=== PATIENT | male | born 1940 | race Caucasian/White ===

== ENCOUNTER 2024-05-03 06:29 | Observation (INO) ==
--- NOTE | 2024-04-27 12:57 | Anesthesiology Consultation ---
Date of Service April 27, 2024 Assessment & Plan Chart Review Chart Review: Acceptable Risk for Surgery and Patient NOT seen in Pre Admission Testing History Surgery Operation Date: 05/03/24 14:40 Proposed Procedures p Cystolithalopaxy (Bladder Stone Fragmentation and Removal) - Raúl Lake DO s Possible TURP (Transurethral Resection of the Prostate) - Raúl Lake DO Height/Weight Height: 5 ft 9 in Weight: 88.904 kg Allergies Allergy/AdvReac Type Severity Reaction Status Date / Time No Known Allergies Allergy Verified 04/26/24 13:27 Medications Home Medications Medication Instructions Recorded Confirmed Last Taken apixaban 5 mg tablet (Eliquis) 5 mg PO BID 03/18/24 04/26/24 Unknown finasteride 5 mg tablet 5 mg PO QAM 03/18/24 04/26/24 Unknown glimepiride 2 mg tablet 2 mg PO QAM 03/18/24 04/26/24 Unknown metformin 500 mg tablet 500 mg PO BID 03/18/24 04/26/24 Unknown pantoprazole 20 mg tablet,delayed 20 mg PO QAM 03/18/24 04/26/24 Unknown release simvastatin 40 mg tablet 40 mg PO QAM 03/18/24 04/26/24 Unknown tamsulosin 0.4 mg capsule 0.4 mg PO QAM 03/18/24 04/26/24 Unknown duloxetine 20 mg capsule,delayed 20 mg PO BID 04/20/24 04/26/24 Unknown release Past Medical History Medical History Hx of blood clots dx right arm/shoulder, 2/2 to "filling up with fluid from bladder stones and kidney issues, and caused him to fall 4x in 2 days,"; on eliquis since then, only to be taking for 3 month course of treatment. Hx of gastroesophageal reflux (GERD) Renal cyst hx Diabetes BPH w urinary obs/LUTS Bladder stones Hyperlipidemia Past Family History Family History Mother Diabetes Heart disease Brother Heart disease Past Surgical History Surgical History History of insertion of nephrostomy tube x2, 01/2024, ph [facility], "still in place" Hx of vasectomy H/O neck surgery 1997, C5-C6 cervical fusion; ROM is limited side to side "mildly" Social History Smoking Status: Former smoker Do You Dip or Chew Tobacco: No (1997 quit; advised) Smoking End Date: 30-40 years ago Hx Alcohol Use: No Hx Substance Use: No substance use type: does not use
[2024-05-03] MEDS ORDERED: ePHEDrine sulfate 50 MG/ML AMP IV PRN (07:02)
[2024-05-03] MEDS ORDERED: ATROPINE SULFATE 0.1 MG/ML 10ML SYR IV PRN (07:02)
[2024-05-03] MEDS ORDERED: ONDANSETRON INJ 2 MG/ML 2 ML VIAL IV PRN ×2 (07:02→07:03)
[2024-05-03] MEDS ORDERED: fentaNYL citrate PF 100 MCG/2 ML VIAL IV PRN (07:02)
[2024-05-03] MEDS ORDERED: PHENAZOPYRIDINE HCL 200 MG TAB PO PRN (07:03)
[2024-05-03] MEDS ORDERED: oxyBUTYnin chloride 5 MG TAB PO PRN (07:03)
[2024-05-03] MEDS ORDERED: MoRPHine SULFATE 2 MG/ML CARP IV PRN (07:03)
[2024-05-03] MEDS ORDERED: oxyCODONE/ACETAMINOPHEN 5mg/325mg TAB PO PRN (07:03)
--- NOTE | 2024-05-03 07:03 | History & Physical Bridge Note ---
Date of Service May 03, 2024 History & Physical Bridge Note I have examined the patient, reviewed the History & Physical and in the interval since the performance of the History & Physical I have noted the following changes of clinical significance: no changes noted
[2024-05-03] MEDS: LR @ 15ML/HR IV SCH (07:16)
[2024-05-03] MEDS ORDERED: LIDOCAINE 2% 2 ML VIAL/AMP(20MG/ML) INFIL ONE (07:23)
[2024-05-03] MEDS ORDERED: PROPOFOL IV EMULSION 10 MG/ML 20 ML VIAL IV ONE (07:23)
[2024-05-03] MEDS ORDERED: ONDANSETRON INJ 2 MG/ML 2 ML VIAL ONE (07:23)
[2024-05-03 07:44] LABS: Albumin Level 3.6 gm/dl (3.4-5.0); BUN Creatinine Ratio 21.3 (10-20); Bilirubin,Total 0.5 mg/dl (0.2-1.0); Calcium 9.1 mg/dl (8.6-10.3); Creatinine Clr Calc Pharmacy 44.2 ml/min; Globulin 3.6 gm/dl (2.5-4.0); Potassium 4.3 mmol/L (3.5-5.1); Total Protein 7.2 gm/dl (6.0-8.3)
[2024-05-03] MEDS ORDERED: ACETAMINOPHEN 1000 MG/100 ML IV IV ONE (07:46)
[2024-05-03] MEDS ORDERED: fentaNYL citrate PF 100 MCG/2 ML VIAL ONE ×2 (07:47→08:10)
[2024-05-03 07:55] LABS: Basophils # (auto) 0.05 K/uL (0.00-0.20); Basophils % (auto) 0.5 %; Eosinophils # (auto) 0.18 K/uL (0.00-0.50); Eosinophils % (auto) 1.8 %; Hematocrit (blood only) 36.1 % (42.0-52.0); Hemoglobin 11.8 g/dl (14.0-18.0); Immature Granulocytes # (auto) 0.03 K/uL (0.01-0.20); Immature Granulocytes % (auto) 0.3 %; Lymphocytes # (auto) 1.45 K/uL (1.20-3.40); Lymphocytes % (auto) 14.6 %; Mean Corpuscular Hemoglobin 29.6 pg (25.0-34.0); Mean Corpuscular Hgb Conc 32.7 g/dL (32.0-36.0); Mean Corpuscular Volume 90.7 fL (80.0-100.0); Mean Platelet Volume 8.5 fL (9.4-12.4); Monocytes # (auto) 0.85 K/uL (0.11-0.59); Monocytes % (auto) 8.6 %; Neutrophils # (auto) 7.36 K/uL (1.40-6.50); Neutrophils % (auto) 74.2 %; Platelet Count 294 K/uL (130-400); Red Blood Count 3.98 M/uL (4.70-6.10); White Blood Count 9.92 K/ul (4.8-10.8)
[2024-05-03] MEDS: ceFAZolin 2000MG 2,000 MG/15 ML SYR IV SCH ×2 (07:57)
[2024-05-03] MEDS ORDERED: PHENYLEPHRINE 100MCG/ML 5ML SYR ONE (08:16)
[2024-05-03] MEDS ORDERED: KETOROLAC 30 MG/ML VIAL ONE (08:18)
[2024-05-03] MEDS ORDERED: HYDROmorphone INJ 2 MG/ML SYR/VIAL ONE (08:28)
[2024-05-03] MEDS: DIATRIZOATE MEGLUMINE 30% 100ML VIAL INSTIL ONE (09:23)
--- NOTE | 2024-05-03 09:40 | Operative Report ---
PG Post Operative Report Pre & Post Diagnosis Operation Date: 05/03/24 07:40 Pre-Op Diagnosis: Bladder Stones, BPH Post-Op Diagnosis: Bladder Stones, BPH I identified the patient and participated in the time-out.: Yes Procedure Operation Date: 05/03/24 07:40 Actual Procedures Cystolitholapaxy (Bladder Stone Fragmentation and Removal), clot/debris evacuation. Bilateral retrograde pyelogram, bilateral ureteral stent placement Transurethral Resection of the Prostate. Fulguration of bladder neck and bladder base lesions. - Raúl Lake DO Surgeon Raúl Lake, II, DO Surgical Garment Fitter None Estimated Blood Loss 10 Findings Consistent with Post-Op Diagnosis Numerous large stones in bladder. Three stones larger than 2.5 cm. Largest approx 3.8 cm in size. Large Prostate with obstruction. Very large median lobe with high bladder neck. Severe edematous changes and bleeding ulceration and varicosity of the base of the bladder and bladder neck. Bilateral ureteral obstruction with nephrostomy tubes in position. Severe tortuosity of the bilateral ureter and significant narrowing of the distal ureter. Bilateral ureteral stents placed. Specimens Prostate adenoma. Bladder Stone Drains 22Fr [address] Catheter 4.8 Fr Multilength stents. Anesthesia Type General Complications none Disposition Disposition: Recovery Room Indications Patient with obstruction due to prostate enlargement. Bilateral nephrostomy tubes placed by outlying facility due to inability to access ureters. Severe bladder stones throughout the bladder. Extremely large prostate with severe varicosities. Risks and benefits discussed at length. Description of Procedure Patient was consented and brought back to the operating room. Patient was placed under anesthesia in the supine position and moved to the dorsal lithotomy position. Patient was prepped and draped in the regular sterile fashion. A time out was completed. A 30degree Cystoscope was placed into the bladder and the entire bladder was examined. Debris had to be evacuated from inside the bladder. Within the prostatic urethra there was severe enlargement with large varicosities and multiple areas of bleeding especially around the bladder neck. There were stones within the prostatic urethra. The bladder was nearly filled completely with stones with 3 very large stones 1 approximately 3.8 cm in size. Numerous small stones throughout the base of the bladder. Innumerable stones were discovered. The majority of the bladder internal lumen was filled with stone material. The median lobe was found to be severely enlarged and edematous there was severe inflammatory changes with edematous changes along the base of the bladder making the ureters difficult to identify. There were numerous areas of bleeding noted from the bladder neck as well as ulcers on the base. The laser bridge and laser fiber were selected and 1000 m laser fiber was utilized. The stones were destroyed to small fragments and pieces. Extensive evacuation was completed in order to clear the large amount of stone material. After bulk of the stone material was able to be broken up and extracted additional large stones were needed to be treated. The laser was once again utilized. The stones were fragmented and pieces were able to be evacuated. The UO's were identified as well as the bladder neck, trigone, dome, and the other important landmarks. The prostatic urethra and large lobes/adenoma was assessed and the veru and bladder neck identified and area/size was assessed. Multiple areas of bleeding varicosities as well as severe edematous changes and ulceration were noted around the bladder neck and base. The resection scope was placed and the fine bipolar loop was selected. Starting at the 5 and 7 o'clock positions, a channel was created from bladder neck to the veru. The Specimen was removed and sent for analysis. The resection bed and any bleeding areas were fulgurated/cauterized and the entire area inspected. All bleeding was controlled. Resection of the very large median lobe drastically improved flow and allowed a easier evacuation of some of the remaining stone pieces. Areas of bleeding and ulceration along the bladder neck and base of the bladder were then fulgurated. Approximately 7 additional lesions were fulgurated in this manner that appear to be ulcerated and inflamed. The UO's were monitored throughout the process and did not appear to be involved. A 5 [place] open-ended catheter was then utilized to access the ureter bilaterally. Severe J hooking was noted significant tortuosity contrast was used to complete a retrograde pyelogram but were extremely difficult due to the angulation of the ureter. A Stan catheter was then selected. This allowed easier access into the UO and a retrograde pyelogram was able to be completed. Significant hydroureter was noted along the mid and proximal ureter there was severe tortuosity. The distal ureter bilaterally was severely narrowed possibly due to external compression possibly due to the entrance point into the bladder being displaced from the large prostate. Wires were placed bilaterally. 4.8 [place] double-J ureteral stents were then placed under direct visualization and confirmed with fluoroscopy. Both stents appear to be in good position. The nephrostomy tubes had also been assessed with contrast in the renal pelvis. Both nephrostomy tubes were in good position and remained in place without major issue. Both appear to be draining well without major problems. The bladder was inspected a final time. The bladder was emptied and irrigated. All specimen and debris was removed. The scope was removed with the bladder partially full. A catheter was placed and balloon elevated. This was easily irrigated. The patient was cleaned, aroused from anesthesia, and transferred to the pacu in stable condition having tolerated the procedure well with no complications. I was present and participated in all aspects of the procedure. The patient will be monitored in the PACU until transferred. Plan to observe overnight. Will plan to maintain catheter for approximately 2 weeks. Can try capping nephrostomy tubes tomorrow if patient tolerates. Will continue on continuous bladder irrigation. Will likely need to maintain ureteral stents until further evaluation. May need resection of remainder of prostate will need to discuss after adequate time for healing. I attest to the content of the Intraoperative Record and any orders documented therein. Any exceptions are noted below.
--- NOTE | 2024-05-03 09:58 | Fluoroscopy Report ---
FL retrograde includes kub CLINICAL HISTORY: B/L RETROGRADE AND STENT PLACEMENT COMPARISON STUDY: None FLUOROSCOPY TIME: 178 seconds FLUOROSCOPY IMAGES: 8 EXPOSURE DOSE: 68 mGy FINDINGS: Fluoroscopy was provided for urologic procedure. IMPRESSION: Intraoperative fluoroscopy. ACT 112: Negative or not required by law. Electronically signed by: Hero Ferro M.D. 05/03/2024 9:57 AM
--- NOTE | 2024-05-03 15:09 | Anesthesiology Progress Note ---
Date of Service May 03, 2024 Anesthesia Post Procedure Vital Signs Vital Signs: Temp Pulse Pulse Pulse Resp BP BP 05/03/24 14:12 36.5 C 75 16 113/59 L 05/03/24 13:58 36.7 C 75 16 111/54 L 05/03/24 13:40 36.3 C L 73 16 115/60 05/03/24 13:30 68 16 120/64 05/03/24 12:30 72 14 120/56 L 05/03/24 12:00 80 12 142/67 H 05/03/24 11:25 36.4 C L 74 14 127/68 05/03/24 11:10 72 16 123/63 05/03/24 10:55 75 14 130/68 05/03/24 10:40 74 12 130/66 05/03/24 10:25 75 16 124/61 05/03/24 10:15 36.4 C L 78 12 128/65 05/03/24 10:05 75 12 128/62 05/03/24 09:55 78 12 126/76 05/03/24 09:45 36 C L 83 10 L 132/69 05/03/24 06:46 36.8 C 99 H 20 141/67 H Pulse Ox O2 Del Method O2 Flow Rate 05/03/24 14:12 97 Room Air 05/03/24 13:58 96 Room Air 05/03/24 13:40 99 Room Air 05/03/24 13:30 96 Room Air 05/03/24 12:30 97 Room Air 05/03/24 12:00 100 Nasal Cannula 2 05/03/24 11:25 99 Nasal Cannula 2 05/03/24 11:10 99 Nasal Cannula 2 05/03/24 10:55 95 Room Air 05/03/24 10:40 94 Room Air 05/03/24 10:25 93 Room Air 05/03/24 10:15 96 Room Air 05/03/24 10:05 99 Oxymask 2 05/03/24 09:55 98 Oxymask 4 05/03/24 09:45 99 Oxymask 6 05/03/24 06:46 97 Room Air Transfer of Care Handoff Completed per policy Notes Mental Status: alert / awake / arousable and participated in evaluation Patient Amnestic to Procedure: Yes Nausea / Vomiting: adequately controlled Pain: adequately controlled Airway Patency, RR, SpO2: stable & adequate BP & HR: stable & adequate Hydration State: stable & adequate Anesthetic Complications: no major complications apparent and Pt Satisfied with anesthetic care
[2024-05-03] MEDS ORDERED: GLUCAGON FOR INJ 1 MG VIAL SQ PRN (16:15)
[2024-05-03] MEDS ORDERED: GLUCOSE 10 TAB/TUBE PO PRN (16:15)
[2024-05-03] MEDS ORDERED: GLUCOSE 40% GEL 15 GM TUBE PO PRN (16:15)
[2024-05-03] MEDS ORDERED: CARBOHYDRATES FOR HYPOGLYCEMIA PO PRN (16:15)
[2024-05-03] MEDS ORDERED: DEXTROSE 50% 50 ML SYRINGE IV PRN (16:15)
--- NOTE | 2024-05-03 16:23 | Consultation ---
Date of Consultation May 03, 2024 Assessment & Plan (1) Bladder stones: Status post cystoscopy today, May 03, with cystolitholapaxy, bilateral ureteral stent placement, TURP, and fulguration of bladder neck and bladder base lesions. Management per urology service. (2) Obstructive nephropathy: History of bilateral ureteral obstruction with bilateral nephrostomy tube placement. Urology management (3) Diabetes: Type II. ADA diet. Sliding scale coverage for now. His usual metformin and glimepiride are on hold (4) Chronic kidney disease, stage 3: Monitor intake and output. Serial labs Plan Thank you for the medical consultation. The hospitalist service will follow and manage the medical problems until discharge by primary service History of Present Illness Reason for Consultation: Medical management Attending Physician: Raúl Lake II DO History of Present Illness 83-year-old white male who underwent cystoscopy today, May 03, with cystolitholapaxy , bilateral ureteral stent placement, TURP, and fulguration of bladder neck lesions and bladder base lesions. He was seen postoperatively and was sleeping but easily awakened and conversant. Vital signs are stable. He is afebrile. He denies hematuria or fever Allergies Allergy/AdvReac Type Severity Reaction Status Date / Time No Known Allergies Allergy Verified 05/03/24 06:53 Home Medications Medication Instructions Recorded Confirmed Type apixaban 5 mg tablet (Eliquis) 5 mg PO BID 03/18/24 05/03/24 History finasteride 5 mg tablet 5 mg PO QAM 03/18/24 05/03/24 History glimepiride 2 mg tablet 2 mg PO QAM 03/18/24 05/03/24 History metformin 500 mg tablet 500 mg PO BID 03/18/24 05/03/24 History pantoprazole 20 mg tablet,delayed 20 mg PO QAM 03/18/24 05/03/24 History release simvastatin 40 mg tablet 40 mg PO QAM 03/18/24 05/03/24 History tamsulosin 0.4 mg capsule 0.4 mg PO QAM 03/18/24 05/03/24 History duloxetine 20 mg capsule,delayed 20 mg PO BID 04/20/24 05/03/24 History release Patient History Medical History Hx of blood clots dx right arm/shoulder, 2/2 to "filling up with fluid from bladder stones and kidney issues, and caused him to fall 4x in 2 days,"; on eliquis since then, only to be taking for 3 month course of treatment. Hx of gastroesophageal reflux (GERD) Renal cyst hx Diabetes BPH w urinary obs/LUTS Bladder stones Hyperlipidemia Surgical History History of insertion of nephrostomy tube x2, 01/2024, ph john, "still in place" Hx of vasectomy H/O neck surgery 1997, C5-C6 cervical fusion; ROM is limited side to side "mildly" Family History Mother Diabetes Heart disease Brother Heart disease Social History Smoking Status: Former smoker Tobacco Type: Smokeless Tobacco (Dip or Chew) Smoking End Date: 30-40 years ago; Second Hand Exposure: No; Do You Dip or Chew Tobacco: No (1997 quit; advised); Tobacco Cessation Education Requested by Patient: No Hx Alcohol Use: No Hx Substance Use: No Preferred Language: Polish Communication Ability: Effective Proposal Specialist Required: No Beliefs That Will Affect Care: None marital status: Single Current Living Situation: Alone Current Living Situation Comment: daughters come every day to check on him every day current occupational status: retired Other Information That Helps Us Care for You: No Feels Safe at Home: Yes Safety Concerns: Feels Safe At This Time Assistive Devices: None Review of Systems 2 Review of Systems: Constitutionalno fever or chills ENTno blurred vision, no double vision, no epistaxis, no sore throat Respiratoryno cough, no wheezing, no shortness of breath Cardiacno palpitations, no chest pain, no syncope Eb nausea, vomiting, diarrhea, melena, hematochezia GUno urinary retention, no urinary incontinence, no dysuria, no hematuria Musculoskeletalno joint pain, no muscle tenderness Skinno bruising, no rashes, no pruritus Neurono isolated weakness, no paresthesia, no weakness Psychno depression, no anxiety Physical Exam 2 Physical Exam: General-alert and oriented x3, no fever, no chills HEENT-head atraumatic and normocephalic, pupils equal and reactive to light, extraocular muscles intact Neck-no lymphadenopathy or thyromegaly, trachea midline Chest-clear to auscultation. No rales, wheezing or rhonchi Cardiac-regular rate and rhythm, normal S1 and S2 Abdomen-normal bowel sounds, no hepatosplenomegaly Extremities-no cyanosis, clubbing, or edema Neuro-cranial nerves II through XII intact, motor and sensory function within normal limits, strength symmetrical, no focal deficits Psych-normal affect, normal mood Results & Data Vital Signs (Past 12 Hours) Vital Signs Temp Pulse Pulse Pulse Resp BP BP 05/03/24 14:12 36.5 C 75 16 113/59 L 05/03/24 13:58 36.7 C 75 16 111/54 L 05/03/24 13:40 36.3 C L 73 16 115/60 05/03/24 13:30 68 16 120/64 05/03/24 12:30 72 14 120/56 L 05/03/24 12:00 80 12 142/67 H 05/03/24 11:25 36.4 C L 74 14 127/68 05/03/24 11:10 72 16 123/63 05/03/24 10:55 75 14 130/68 05/03/24 10:40 74 12 130/66 05/03/24 10:25 75 16 124/61 05/03/24 10:15 36.4 C L 78 12 128/65 05/03/24 10:05 75 12 128/62 05/03/24 09:55 78 12 126/76 05/03/24 09:45 36 C L 83 10 L 132/69 05/03/24 06:46 36.8 C 99 H 20 141/67 H Pulse Ox O2 Del Method O2 Flow Rate 05/03/24 14:12 97 Room Air 05/03/24 13:58 96 Room Air 05/03/24 13:40 99 Room Air 05/03/24 13:30 96 Room Air 05/03/24 12:30 97 Room Air 05/03/24 12:00 100 Nasal Cannula 2 05/03/24 11:25 99 Nasal Cannula 2 05/03/24 11:10 99 Nasal Cannula 2 05/03/24 10:55 95 Room Air 05/03/24 10:40 94 Room Air 05/03/24 10:25 93 Room Air 05/03/24 10:15 96 Room Air 05/03/24 10:05 99 Oxymask 2 05/03/24 09:55 98 Oxymask 4 05/03/24 09:45 99 Oxymask 6 05/03/24 06:46 97 Room Air Laboratory Results 05/03/24 07:11 05/03/24 07:11 PG Care Time/CCT Total # of Minutes Spent Total Time Spent with Patient: Total time spent is greater than 50% in coordination of care (as documented) at patient's floor/unit and/or counseling patient: Coding Level of Care Code 13410 INT INP/OBS CARE 2MIN Diagnoses Bladder stones N21.0 Obstructive nephropathy N13.8 Diabetes E11.9 Chronic kidney disease, stage 3 N18.30
[2024-05-03 17:29] LABS: Hemoglobin 11.2 g/dl (14.0-18.0); Mean Corpuscular Hemoglobin 30.1 pg (25.0-34.0); Mean Corpuscular Hgb Conc 32.9 g/dL (32.0-36.0); Mean Corpuscular Volume 91.4 fL (80.0-100.0); Mean Platelet Volume 8.6 fL (9.4-12.4); Platelet Count 266 K/uL (130-400); RDW Standard Deviation 42.7 fL (36.4-46.3); Red Blood Count 3.72 M/uL (4.70-6.10); White Blood Count 8.36 K/ul (4.8-10.8)
[2024-05-03 17:46] LABS: Albumin Globulin Ratio 0.9 (0.9-2); Albumin Level 3.1 gm/dl (3.4-5.0); BUN Creatinine Ratio 19.5 (10-20); Bilirubin,Total 0.3 mg/dl (0.2-1.0); Calcium 8.4 mg/dl (8.6-10.3); Creatinine Clr Calc Pharmacy 37.8 ml/min; Globulin 3.3 gm/dl (2.5-4.0); Potassium 4.7 mmol/L (3.5-5.1); Total Protein 6.4 gm/dl (6.0-8.3)
[2024-05-03] MEDS: DOCUSATE SODIUM 100 MG CAP PO SCH (18:01)
[2024-05-03] MEDS: TAMSULOSIN HCL 0.4 MG CAP PO SCH (18:02)
[2024-05-03] MEDS: PANTOprazole 40 MG TAB PO SCH (18:02)
[2024-05-03] MEDS: DULoxetine HCL 20 MG CAP PO SCH (18:02)
[2024-05-03] MEDS: INSULIN ASPART PER UNIT CHARGE SC SCH (18:11)
[2024-05-03] MEDS: FAMOTIDINE/PF 20 MG/2 ML VIAL IV ONE (18:36)
[2024-05-04] MEDS ORDERED: HYDROmorphone INJ 0.5 MG/0.5 ML SYR IV PRN (00:05)
[2024-05-04] MEDS: LOPERAMIDE HCL 2 MG CAP PO PRN (01:02)
[2024-05-04 10:00] LABS: Basophils # (auto) 0.03 K/uL (0.00-0.20); Basophils % (auto) 0.4 %; Eosinophils # (auto) 0.14 K/uL (0.00-0.50); Eosinophils % (auto) 1.6 %; Hematocrit (blood only) 34.8 % (42.0-52.0); Hemoglobin 11.2 g/dl (14.0-18.0); Immature Granulocytes # (auto) 0.02 K/uL (0.01-0.20); Immature Granulocytes % (auto) 0.2 %; Lymphocytes # (auto) 1.43 K/uL (1.20-3.40); Lymphocytes % (auto) 16.7 %; Mean Corpuscular Hemoglobin 29.2 pg (25.0-34.0); Mean Corpuscular Hgb Conc 32.2 g/dL (32.0-36.0); Mean Corpuscular Volume 90.6 fL (80.0-100.0); Mean Platelet Volume 8.4 fL (9.4-12.4); Monocytes # (auto) 0.76 K/uL (0.11-0.59); Monocytes % (auto) 8.9 %; Neutrophils # (auto) 6.19 K/uL (1.40-6.50); Neutrophils % (auto) 72.2 %; Platelet Count 251 K/uL (130-400); RDW Coefficient of Variation 12.9 % (11.5-14.5); Red Blood Count 3.84 M/uL (4.70-6.10); White Blood Count 8.57 K/ul (4.8-10.8)
[2024-05-04 10:13] LABS: BUN Creatinine Ratio 25.4 (10-20); Calcium 8.5 mg/dl (8.6-10.3); Creatinine Clr Calc Pharmacy 47.6 ml/min; Potassium 3.7 mmol/L (3.5-5.1)
--- NOTE | 2024-05-04 10:58 | Urology Progress Note ---
Date of Service May 04, 2024 Assessment & Plan (1) Bladder stones: (2) History of insertion of nephrostomy tube: (3) BPH w urinary obs/LUTS: Plan: - Pt POD#1 s/p Cystolitholapaxy (Bladder Stone Fragmentation and Removal), clot/debris evacuation. Bilateral retrograde pyelogram, bilateral ureteral stent placement. Transurethral Resection of the Prostate. Fulguration of bladder neck and bladder base lesions. - Doing well, progressing as expected - Afebrile, stable vitals - Lab work reviewed - creatinine 1.26, WBC 8.57, Hgb 11.2 - Bilateral nephrostomy tubes intact and draining clear urine, capped at bedside per Dr. Lake - 3 way Martinez catheter intact, patent and draining clear urine with CBI on slow - CBI clamped during exam- will reassess later this AM - Maintain Martinez catheter for 2 weeks - Anticipate home with Martinez catheter later today or tomorrow presuming urine appropriate and he continues to progress as expected - Expected clinical course reviewed, all questions answered - Will arrange outpatient follow-up with our service for voiding trial and ongoing management Admission and Anticipated Discharge Date Admission Date: May 03, 2024 Subjective Patient seen and examined at bedside. No acute issues overnight. He denies pain at present. Bilateral nephrostomy tubes intact with clear urine. Martinez patent and draining with clear urine with CBI on slow. CBI clamped at bedside. Nephrostomy tubes clamped per Dr. Lake. Denies fever or chills. Review of Systems Constitutional: as per Subjective / HPI Genitourinary: + as per Subjective / HPI Physical Exam Constitutional: well developed and well nourished; no acute distress Respiratory: normal respiratory effort; no respiratory distress and no labored breathing Gastrointestinal (Abdomen): Inspection/Auscultation: abdomen normal to inspection Musculoskeletal: Head/Neck/Chest: normocephalic Neurologic: moves all extremities and awake Psychiatric: Orientation: alert and oriented x 3 Genitourinary: Bilateral nephrostomy tubes with clear urine, capped during exam. Martinez with clear urine, CBI on slow. CBI clamped during exam. Results & Data Vital Signs (Past 12 Hours) Vital Signs Temp Pulse Pulse Resp BP Pulse Ox Pulse Ox 05/04/24 10:48 36.4 C L 85 18 122/63 97 05/04/24 07:27 36.4 C L 85 16 116/50 L 97 05/04/24 07:04 97 05/04/24 07:04 88 05/04/24 03:50 36.4 C L 87 20 132/58 L 95 05/04/24 00:28 36.6 C 91 H 20 130/64 98 05/03/24 23:05 O2 Del Method O2 Del Method 05/04/24 10:48 Room Air 05/04/24 07:27 Room Air 05/04/24 07:04 Room Air 05/04/24 07:04 05/04/24 03:50 Room Air 05/04/24 00:28 Room Air 05/03/24 23:05 Room Air PG Care Time/CCT Total # of Minutes Spent Total Time Spent with Patient: Total time spent is greater than 50% in coordination of care (as documented) at patient's floor/unit and/or counseling patient: Coding Level of Care Code None Diagnoses Bladder stones N21.0 History of insertion of nephrostomy tube Z98.890 BPH w urinary obs/LUTS N40.1; N13.8
--- NOTE | 2024-05-04 12:32 | Hospitalist Progress Note ---
Date of Service May 04, 2024 Assessment & Plan (1) Bladder stones: Plan: Status post cystoscopy on May 03, with cystolitholapaxy, bilateral ureteral stent placement, TURP, and fulguration of bladder neck and bladder base lesions. Postoperative day #1. Management per urology service. (2) Obstructive nephropathy: Plan: History of bilateral ureteral obstruction with bilateral nephrostomy tube placement. Urology management (3) Diabetes: Plan: Type II. ADA diet. Sliding scale coverage for now. His usual metformin and glimepiride are on hold. Glucose 156 this morning, May 04 (4) Chronic kidney disease, stage 3: Plan: Stable. Monitor intake and output. Serial labs Plan Medically stable for discharge when appropriate as determined by primary service Admission and Anticipated Discharge Date Admission Date: May 03, 2024 Subjective Alert and oriented. No distress. Urology entry noted. Will be discharged to home later today or tomorrow. He is medically stable Review of Systems 2 Review of Systems: Constitutionalno fever or chills ENTno blurred vision, no double vision, no epistaxis, no sore throat Respiratoryno cough, no wheezing, no shortness of breath Cardiacno palpitations, no chest pain, no syncope Eb nausea, vomiting, diarrhea, melena, hematochezia GUno urinary retention, no urinary incontinence, no dysuria, no hematuria Musculoskeletalno joint pain, no muscle tenderness Skinno bruising, no rashes, no pruritus Neurono isolated weakness, no paresthesia, no weakness Psychno depression, no anxiety Physical Exam 2 Physical Exam: General-alert and oriented x3, no fever, no chills HEENT-head atraumatic and normocephalic, pupils equal and reactive to light, extraocular muscles intact Neck-no lymphadenopathy or thyromegaly, trachea midline Chest-clear to auscultation. No rales, wheezing or rhonchi Cardiac-regular rate and rhythm, normal S1 and S2 Abdomen-normal bowel sounds, no hepatosplenomegaly Extremities-no cyanosis, clubbing, or edema Neuro-cranial nerves II through XII intact, motor and sensory function within normal limits, strength symmetrical, no focal deficits Psych-normal affect, normal mood Results & Data Results & Data Vital Signs (Past 12 Hours) Vital Signs Temp Pulse Pulse Resp BP Pulse Ox Pulse Ox 05/04/24 10:48 36.4 C L 85 18 122/63 97 05/04/24 07:55 05/04/24 07:27 36.4 C L 85 16 116/50 L 97 05/04/24 07:04 97 05/04/24 07:04 88 05/04/24 03:50 36.4 C L 87 20 132/58 L 95 O2 Del Method O2 Del Method 05/04/24 10:48 Room Air 05/04/24 07:55 Room Air 05/04/24 07:27 Room Air 05/04/24 07:04 Room Air 05/04/24 07:04 05/04/24 03:50 Room Air Laboratory Results 05/04/24 09:16 05/04/24 09:16 PG Care Time/CCT Total # of Minutes Spent Total Time Spent with Patient: Total time spent is greater than 50% in coordination of care (as documented) at patient's floor/unit and/or counseling patient: Coding Level of Care Code 09937 SUB INP/OBS CARE 2/35MIN Diagnoses Bladder stones N21.0 Obstructive nephropathy N13.8 Diabetes E11.9 Chronic kidney disease, stage 3 N18.30
[2024-05-05 03:35] VITALS: TEMP 97.9
[2024-05-05 07:33] VITALS: BP 146/75; RESP 18; O2SAT 93
[2024-05-05 09:22] LABS: Basophils # (auto) 0.04 K/uL (0.00-0.20); Basophils % (auto) 0.5 %; Eosinophils # (auto) 0.31 K/uL (0.00-0.50); Eosinophils % (auto) 4.2 %; Hematocrit (blood only) 34.3 % (42.0-52.0); Hemoglobin 11.2 g/dl (14.0-18.0); Immature Granulocytes # (auto) 0.02 K/uL (0.01-0.20); Immature Granulocytes % (auto) 0.3 %; Lymphocytes # (auto) 1.87 K/uL (1.20-3.40); Lymphocytes % (auto) 25.1 %; Mean Corpuscular Hemoglobin 29.5 pg (25.0-34.0); Mean Corpuscular Hgb Conc 32.7 g/dL (32.0-36.0); Mean Corpuscular Volume 90.3 fL (80.0-100.0); Mean Platelet Volume 8.4 fL (9.4-12.4); Monocytes # (auto) 0.72 K/uL (0.11-0.59); Monocytes % (auto) 9.7 %; Neutrophils % (auto) 60.2 %; Platelet Count 240 K/uL (130-400); RDW Coefficient of Variation 12.8 % (11.5-14.5); RDW Standard Deviation 41.5 fL (36.4-46.3); White Blood Count 7.46 K/ul (4.8-10.8)
--- NOTE | 2024-05-05 09:23 | Urology Progress Note ---
Date of Service May 05, 2024 Assessment & Plan (1) Bladder stones: (2) History of insertion of nephrostomy tube: (3) BPH w urinary obs/LUTS: Plan: - Pt POD#2 s/p Cystolitholapaxy (Bladder Stone Fragmentation and Removal), clot/debris evacuation. Bilateral retrograde pyelogram, bilateral ureteral stent placement. Transurethral Resection of the Prostate. Fulguration of bladder neck and bladder base lesions. - Doing well, progressing as expected - Afebrile, stable vitals - Lab work reviewed - WBC 7.46, Hgb 11.2 - Bilateral nephrostomy tubes capped yesterday, no issues with flank pain - CBI was discontinued yesterday, Martinez catheter draining clear yellow - Maintain Martinez catheter for 2 weeks - Nephrostomy tubes can remain in place and capped, can be removed at follow-up - Patient can resume Eliquis today or tomorrow - Anticipate home with Martinez catheter today - Expected clinical course reviewed, all questions answered - Will arrange outpatient follow-up with our service for voiding trial and ongoing management, renal US ordered for prior to appointment Admission and Anticipated Discharge Date Admission Date: May 03, 2024 Subjective Patient seen and examined at bedside this morning. No acute events overnight. He denies flank pain. Bilateral nephrostomy tubes were capped yesterday. Martinez intact. CBI discontinued yesterday. Review of Systems Constitutional: as per Subjective / HPI Genitourinary: + as per Subjective / HPI Physical Exam Constitutional: well developed and well nourished; no acute distress Respiratory: normal respiratory effort; no respiratory distress and no labored breathing Gastrointestinal (Abdomen): Inspection/Auscultation: abdomen normal to inspection Musculoskeletal: Head/Neck/Chest: normocephalic Neurologic: moves all extremities and awake Psychiatric: Orientation: alert and oriented x 3 Genitourinary: Bilateral nephrostomy tubes capped, no urinary output in collection bags. Martinez with clear urine. Results & Data Vital Signs (Past 12 Hours) Vital Signs Temp Pulse Pulse Resp BP Pulse Ox O2 Del Method 05/05/24 09:16 84 05/05/24 07:36 Room Air 05/05/24 07:36 05/05/24 07:33 36.6 C 88 18 146/75 H 93 Room Air 05/05/24 03:34 36.6 C 94 H 20 147/70 H 96 Room Air 05/04/24 23:54 36.3 C L 95 H 20 123/58 L 95 Room Air 05/04/24 21:46 94 H O2 Del Method 05/05/24 09:16 05/05/24 07:36 05/05/24 07:36 Room Air 05/05/24 07:33 05/05/24 03:34 05/04/24 23:54 05/04/24 21:46 PG Care Time/CCT Total # of Minutes Spent Total Time Spent with Patient: Total time spent is greater than 50% in coordination of care (as documented) at patient's floor/unit and/or counseling patient: Coding Level of Care Code None Diagnoses Bladder stones N21.0 History of insertion of nephrostomy tube Z98.890 BPH w urinary obs/LUTS N40.1; N13.8
[2024-05-05 09:42] LABS: BUN Creatinine Ratio 21.6 (10-20); Calcium 8.5 mg/dl (8.6-10.3); Creatinine Clr Calc Pharmacy 48.5 ml/min; Potassium 3.7 mmol/L (3.5-5.1)
[2024-05-05 09:53] VITALS: PULSE 75
--- NOTE | 2024-05-05 11:21 | Hospitalist Progress Note ---
Date of Service May 05, 2024 Assessment & Plan (1) Bladder stones: Plan: Status post cystoscopy on May 03, with cystolitholapaxy, bilateral ureteral stent placement, TURP, and fulguration of bladder neck and bladder base lesions. Postoperative day #2. Management per urology service. (2) Obstructive nephropathy: Plan: History of bilateral ureteral obstruction with bilateral nephrostomy tube placement. Urology management (3) Diabetes: Plan: Type II. ADA diet. Sliding scale coverage for now. His usual metformin and glimepiride are on hold. These can be restarted at discharge. Stable (4) Chronic kidney disease, stage 3: Plan: Stable. Monitor intake and output. Serial labs Plan Medically stable for discharge when appropriate as determined by primary service Admission and Anticipated Discharge Date Admission Date: May 03, 2024 Subjective No complaints. He is medically stable Review of Systems 2 Review of Systems: Constitutionalno fever or chills ENTno blurred vision, no double vision, no epistaxis, no sore throat Respiratoryno cough, no wheezing, no shortness of breath Cardiacno palpitations, no chest pain, no syncope Eb nausea, vomiting, diarrhea, melena, hematochezia GUno urinary retention, no urinary incontinence, no dysuria, no hematuria Musculoskeletalno joint pain, no muscle tenderness Skinno bruising, no rashes, no pruritus Neurono isolated weakness, no paresthesia, no weakness Psychno depression, no anxiety Physical Exam 2 Physical Exam: General-alert and oriented x3, no fever, no chills HEENT-head atraumatic and normocephalic, pupils equal and reactive to light, extraocular muscles intact Neck-no lymphadenopathy or thyromegaly, trachea midline Chest-clear to auscultation. No rales, wheezing or rhonchi Cardiac-regular rate and rhythm, normal S1 and S2 Abdomen-normal bowel sounds, no hepatosplenomegaly Extremities-no cyanosis, clubbing, or edema Neuro-cranial nerves II through XII intact, motor and sensory function within normal limits, strength symmetrical, no focal deficits Psych-normal affect, normal mood Results & Data Results & Data Vital Signs (Past 12 Hours) Vital Signs Temp Pulse Pulse Pulse Resp BP Pulse Ox 05/05/24 09:53 36.6 C 75 88 18 146/75 H 93 05/05/24 09:16 84 05/05/24 07:36 05/05/24 07:36 05/05/24 07:33 36.6 C 88 18 146/75 H 93 05/05/24 03:34 36.6 C 94 H 20 147/70 H 96 05/04/24 23:54 36.3 C L 95 H 20 123/58 L 95 O2 Del Method O2 Del Method 05/05/24 09:53 05/05/24 09:16 05/05/24 07:36 Room Air 05/05/24 07:36 Room Air 05/05/24 07:33 Room Air 05/05/24 03:34 Room Air 05/04/24 23:54 Room Air Laboratory Results 05/05/24 08:57 05/05/24 08:57 PG Care Time/CCT Total # of Minutes Spent Total Time Spent with Patient: Total time spent is greater than 50% in coordination of care (as documented) at patient's floor/unit and/or counseling patient: Coding Level of Care Code 11374 SUB INP/OBS CARE 235MIN Diagnoses Bladder stones N21.0 Obstructive nephropathy N13.8 Diabetes E11.9 Chronic kidney disease, stage 3 N18.30
--- NOTE | 2024-05-05 11:35 | Discharge Summary ---
Date of Service May 05, 2024 Admission HPI Per Admitting Provider Patient with BPH with obstruction, bilateral hydronephrosis and bladder stones here for cystolitholapaxy, ureteroscopy, stent placement and resection of prostate. Principal Diagnosis BPH with obstruction, bladder stones Discharge Exam Constitutional well developed and well nourished; no acute distress Respiratory normal respiratory effort; no respiratory distress and no labored breathing Gastrointestinal (Abdomen) Inspection/Auscultation: abdomen normal to inspection Musculoskeletal Head/Neck/Chest: normocephalic Neurologic moves all extremities and awake Psychiatric Orientation: alert and oriented x 3 Discharge Data Allergies Allergy/AdvReac Type Severity Reaction Status Date / Time No Known Allergies Allergy Verified 05/03/24 06:53 Consultations 05/03/24 07:06 Consult Hospitalist Routine Procedures Performed Operation Date: 05/03/24 07:40 Actual Procedures p Cystolitholapaxy (Bladder Stone Fragmentation and Removal), Bilateral retrograde pyelogram, bilateral ureteral stent placement(Not Applicable) - Raúl Lake DO s Transurethral Resection of the Prostate(Not Applicable) - Raúl Lake DO Ordered Studies 05/03/24 08:00 FL retrograde includes kub Routine Hospital Course (1) Bladder stones: (2) History of insertion of nephrostomy tube: (3) BPH w urinary obs/LUTS: - Pt POD#2 s/p Cystolitholapaxy (Bladder Stone Fragmentation and Removal), clot/debris evacuation. Bilateral retrograde pyelogram, bilateral ureteral stent placement. Transurethral Resection of the Prostate. Fulguration of bladder neck and bladder base lesions. - Doing well, progressing as expected - Afebrile, stable vitals - Lab work reviewed - WBC 7.46, Hgb 11.2 - Bilateral nephrostomy tubes capped yesterday, no issues with flank pain - CBI was discontinued yesterday, Martinez catheter draining clear yellow - Maintain Martinez catheter for 2 weeks - Nephrostomy tubes can remain in place and capped, can be removed at follow-up - Patient can resume Eliquis today or tomorrow - Anticipate home with Martinez catheter today - Expected clinical course reviewed, all questions answered - Will arrange outpatient follow-up with our service for voiding trial and ongoing management, renal US ordered for prior to appointment Total Time Total Time Spent Total Time Spent (In Minutes): 20 Discharge Plan Discharge Items Patient Disposition: Home - Home Health Services Reason For Visit: Bladder Stones Discharge Diagnosis: Bladder Stones Activity: Per Instructions section Lifting: No more than 25 pounds Bathing Comment: Okay to shower after discharge, no tub bath or soaking Sexual Activity: Wait until after follow-up appointment Exercise/Sports: Wait until after follow-up appointment Non-emergency contact: Surgeon and Urologist Call non-emergency contact if: your pain is worsening, you have a fever and your temperature is above 101 Follow-up/Referrals: Raúl Lake DO [Physician] - 05/19/24 8:30 am Lashanda Shaffer MD [Primary Care Provider] - Diet: Regular Addtl Attending Provider Instructions: Please take all medications as prescribed and keep all follow-ups as scheduled. Please call our office at [phone] with any questions, concerns or need to reschedule appointments for any reason. We are happy to assist you. You can resume Eliquis on 05/05. You can keep your nephrostomy tubes capped. You do not need to flush them. They can be removed at your follow-up with Dr. Lake. Tips for your recovery at home: Dont be alarmed by brownish or reddish blood or clots in your urine. This is a result of the procedure. This may occur off and on for weeks to months after the procedure but should continue to improve. Drink plenty of fluids during the day (enough to keep your urine very light colored). This will help keep a healthy flow of urine. Do not lift >25 lbs until your followup Avoid constipation. Please use a stool softener (Colace) for the first two weeks after your procedure Be sure to finish the antibiotics as prescribed. If you go home with a catheter, please wash tubing where it enters your body twice daily with mild soap (Dove or Dial). Once your catheter is removed, expect some blood in your urine and some burning when you urinate. You should have an appointment to have this removed, if you do not please call our office to arrange. Pending Studies at Discharge: Yes Stand-Alone Forms: My [employer], Smoking Cessation Medications and DC Order Prescriptions: New cephalexin 500 mg capsule 500 mg PO BID 7 Days Qty: 14 0RF Continued Eliquis 5 mg tablet 5 mg PO BID finasteride 5 mg tablet 5 mg PO QAM metformin 500 mg tablet 500 mg PO BID pantoprazole 20 mg tablet,delayed release (DR/EC) 20 mg PO QAM simvastatin 40 mg tablet 40 mg PO QAM tamsulosin 0.4 mg capsule 0.4 mg PO QAM glimepiride 2 mg tablet 2 mg PO QAM duloxetine 20 mg capsule,delayed release(DR/EC) 20 mg PO BID Admission Data Admit Date/Time: 05/03/24 07:03 Attending Provider: Raúl Lake Admit Provider: Raúl Lake Primary Care Provider: Lashanda Shaffer Other Providers: Mauri Escalante Other Interventions: Discharge Summary Assessment (RN) Last Done: 05/05/24 09:53 Coding Level of Care Code 64163 IN/OBS DISCH 30 MIN/LESS Diagnoses Bladder stones N21.0 History of insertion of nephrostomy tube Z98.890 BPH w urinary obs/LUTS N40.1; N13.8
[2024-05-10 16:12] LABS: Component 2 DNR; Source BLADDER
== END 2024-05-05 12:25 | disposition home health service (06) ==
LOC: PACUINP 06:29 → ASU 06:29 → 2N 13:47
DX: Z79.01 Long term (current) use of anticoagulants; E11.22 Type 2 diabetes mellitus with diabetic chronic kidney disease; N21.0 Calculus in bladder; Z79.84 Long term (current) use of oral hypoglycemic drugs; Z79.899 Other long term (current) drug therapy; Z86.718 Personal history of other venous thrombosis and embolism; I86.8 Varicose veins of other specified sites; N18.30 Chronic kidney disease, stage 3 unspecified; N13.8 Other obstructive and reflux uropathy; N13.30 Unspecified hydronephrosis; Z98.890 Other specified postprocedural states; Z87.891 Personal history of nicotine dependence; N40.1 Benign prostatic hyperplasia with lower urinary tract symptoms; E78.5 Hyperlipidemia, unspecified